=== PATIENT | female | born 1995 | race Caucasian/White ===

== ENCOUNTER 2016-07-22 19:03 | Emergency (ER) | payer OTHER ==
[~2016-07-22] VITALS: Ht 162.6 cm; Wt 118.0 kg
[~2016-07-22 19:03] MED LIST: CEPHALEXIN500 MG PO; CIPROFLOXACN500 MG PO
[2016-07-22 21:36] LABS: URINE BILIRUBIN - DIPSTICK NEGATIVE (NEGATIVE); URINE BLOOD DIPSTICK NEGATIVE (NEGATIVE); URINE CLARITY SLIGHT CLOUDY; URINE COLOR YELLOW; URINE GLUCOSE - DIPSTICK NEGATIVE (NEGATIVE); URINE KETONE NEGATIVE (NEGATIVE); URINE LEUK ESTERASE NEGATIVE (NEGATIVE); URINE PROTEIN - DIPSTICK NEGATIVE (NEG-TRACE); URINE SPECIFIC GRAVITY >=1.030; URINE UROBILINOGEN - DIPSTICK 0.2 E.U./dL (0.2)
[2016-07-22 21:39] LABS: URINE NITRITE - DIPSTICK POSITIVE (Negative)
[2016-07-22 21:41] LABS: URINE RBC 0-2 RBC/hpf (0-5); URINE WBC 0-2 WBC/hpf (0-5)
[2016-07-22 21:42] LABS: URINE BACTERIA MANY hpf; URINE CALCIUM OXALATE CRYSTALS FEW lpf; URINE SQUAMOUS EPITHELIAL CELL FEW EPI/hpf (0-FEW)
[2016-07-22 23:30] VITALS: BP 112/72
[2016-07-22] MEDS ORDERED: ROBITUSSIN AC10 ML PO (23:44)
[2016-07-22] MEDS ORDERED: CIPROFLOXACN500 MG PO (23:44)
[2016-07-23] MEDS ORDERED: ACETAMINOP160 MG/5 M PO (11:51)
== END 2016-07-22 23:56 | disposition home or self-care (01) | DRG 153 ==
LOC: ED 19:03
PROVIDERS: Emergency Medicine
DX: J06.9 Acute upper respiratory infection, unspecified (principal); N30.90 Cystitis, unspecified without hematuria; B96.20 Unspecified Escherichia coli [E. coli] as the cause of diseases classified elsewhere; R30.0 Dysuria

== ENCOUNTER 2022-10-25 08:30 | Emergency (ER) | payer SELFPAY ==
[~2022-10-25] VITALS: Ht 162.6 cm; Wt 113.7 kg
[~2022-10-25 08:30] MED LIST changes: +ACETAMINOP160 MG/5 M PO; +ROBITUSSIN AC10 ML PO
[2022-10-25 08:37] VITALS: BP 148/79
[2022-10-25 09:10] VITALS: BP 126/60
[2022-10-25 09:13] LABS: BASO% 0.1 % (0-3); EOS% 1.6 % (0-8); IMMATURE GRANULOCYTES 0.1 % (0.0-5.0); LYMPH% 33.1 % (15-41); MEAN CORPUSCULAR HGB 26.9 pG CALC (26.0-32.0); MEAN CORPUSCULAR HGB CONC 31.9 g/dL CAL (32.0-36.0); MONO% 5.1 % (2-13); NEUT# 5.27 thou/uL (2.00-7.15); RED BLOOD COUNT 5.06 mill/uL (4.20-5.60); RED CELL DISTRI WIDTH 13.7 % (11.5-15.5)
[2022-10-25 09:25] LABS: ALKALINE PHOSPHATASE 108 u/l (38-126); ANION GAP 13 (6-22 (CALC)); BILIRUBIN, TOTAL 0.8 mg/dL (0.02-1.3); BUN 9 mg/dL (7-17); BUN/CREATININE RATIO 11 (12-20 (CALC)); CARBON DIOXIDE 20 mmol/l (22-30); CHLORIDE 111 mmol/l (95-108); CREATININE 0.8 mg/dL (0.5-1.0); GFR FOR AFR.AMER. > 60 ML/MIN (>=60 (CALC)); GFR OTHER RACES > 60 ML/MIN (>=60 (CALC)); LIPASE 58 u/l (23-300); POTASSIUM 3.5 mmol/l (3.5-5.1); SGOT/AST 30 u/l (14-36); SODIUM 140 mmol/l (137-146)
[2022-10-25 09:26] LABS: URINE COLOR YELLOW; URINE GLUCOSE - DIPSTICK NEGATIVE (NEGATIVE); URINE KETONE TRACE mg/dL (NEGATIVE); URINE PH 5.5 (4.5-8.0); URINE SPECIFIC GRAVITY >=1.030
[2022-10-25 09:27] LABS: URINE BLOOD DIPSTICK LARGE (NEGATIVE); URINE LEUK ESTERASE MODERATE (NEGATIVE); URINE NITRITE - DIPSTICK NEGATIVE (Negative); URINE PROTEIN - DIPSTICK >=300 mg/dL (NEG-TRACE); URINE UROBILINOGEN - DIPSTICK 0.2 E.U./dL (0.2)
[2022-10-25 09:28] LABS: URINE BACTERIA FEW hpf; URINE EPITHELIAL CELLS MANY EPI/hpf (0-FEW); URINE RBC 25-50 RBC/hpf (0-5)
[2022-10-25 09:31] VITALS: BP 135/87
[2022-10-25 09:35] LABS: ALBUMIN 4.2 g/dL (3.2-5.0); TOTAL PROTEIN 7.9 g/dL (6.3-8.2)
[2022-10-25 09:40] LABS: HEMATOCRIT 42.6 % (37.0-47.0); HEMOGLOBIN 13.6 g/dl (12.0-16.0); MEAN CELL VOLUME 84.2 fL CALC (80.0-100.0)
[2022-10-25] MEDS ORDERED: OMNI-PAC300 MG PO (11:02)
[2022-10-25 11:41] VITALS: BP 129/52
[2022-10-25 11:43] VITALS: BP 129/52
== END 2022-10-25 11:49 | disposition home or self-care (01) | DRG 690 ==
LOC: ED 08:30
PROVIDERS: Family Medicine
DX: N13.6 Pyonephrosis (principal); E66.9 Obesity, unspecified
CPT/HCPCS: Q9967